=== PATIENT | female | born 1995 | race Caucasian/White ===

== ENCOUNTER 2020-01-30 10:57 | Inpatient (IN) | payer OTHER ==
[2020-01-30] MEDS ORDERED: Penicillin G Potassium 5 MILL.UNITS VIAL ONE (11:27)
[2020-01-30 12:04] VITALS: BMI 23.8
[2020-01-30] MEDS ORDERED: Lidocaine 1% (PF) 30 ML VIAL ONE (12:59)
[2020-01-30] MEDS ORDERED: NS / Oxytocin 40 units/1000ml 1,000 ML ONE (12:59)
[2020-01-30] MEDS ORDERED: Ondansetron PF 4 MG/2 ML Vial IVP PRN (13:07)
[2020-01-30] MEDS ORDERED: Methylergonovine 0.2 MG/ML VIAL IM PRN ×2 (13:07→17:16)
[2020-01-30] MEDS ORDERED: NS / Oxytocin 40 units/1000ml 1,000 ML IV PRN (13:07)
[2020-01-30] MEDS ORDERED: Promethazine HCl 25 MG/ML VIAL IM PRN (13:07)
[2020-01-30] MEDS ORDERED: HYDROcodone/Acetaminophen 5/325 mg Tablet PO PRN ×4 (13:07→17:16)
[2020-01-30] MEDS ORDERED: Lactated Ringer's 1,000 ML IV PRN (13:07)
[2020-01-30] MEDS ORDERED: hydrALAZINE 20 MG/ML VIAL SLOW IVP PRN ×2 (13:07→17:16)
[2020-01-30] MEDS ORDERED: Ibuprofen 800 MG TAB PO PRN (13:07)
[2020-01-30] MEDS ORDERED: Lidocaine 1% (PF) 30 ML VIAL SC PRN (13:07)
[2020-01-30] MEDS ORDERED: Misoprostol 200 MCG TAB PR PRN (13:07)
--- NOTE | 2020-01-30 13:11 | PDOC.LDHP ---
Labor and Delivery H&P Chief complaint: contractions HPI: patient notified me at 0945 that she was having bloody show and some mild contractions. She was going to labor at home with her drier helper until they became intense and then come to hospital. She denies LOF. Current gestational age (weeks): 40 Due date: 01/27/20 Dating criteria: first trimester ultrasound (dating off 1st trimester US at 6w3day.) Grav: 3 Para: 2 OB History Details: 2016. 10lb 2018 8.14 oz 2019 current gestation Current complications: none Abnormal US findings: No Current medications: pre- vitamins Previous surgical history: other (wisdom teeth) Allergies/Adverse Reactions: Allergies Allergy/AdvReac Type Severity Reaction Status Date / Time latex Allergy Verified 05/19/18 09:29 Social history: none - Physical Exam Vital signs reviewed and normal: yes General: breathing through contractions Lungs: nonlabored breathing Abdomen: gravid FHT: category 1 (baseline 125. +Accels. neg decels.) - Vaginal Exam cm dilated: 8 Effacement: 100% Station: 0 - OB Labs Blood type: A RH: positive Antibody Screen: negative HIV: negative RPR: negative HEPSAg: negative 1 hour GCT: negative GBS: positive Urine drug screen: negative Rubella: non-immune - Assessment L&D Assessment: term patient in labor - Plan Plan: admit to L&D, GBS antibiotic prophylaxis
[2020-01-30] MEDS ORDERED: Penicillin G Potassium 5 MILL.UNITS in Sodium Chloride 0.9% 100 ML IVPB SCH (13:15)
[2020-01-30 13:55] LABS: Hemoglobin 11.6 g/dL (12.0-16.0); Mean Corpuscular HGB CONC 32.6 g/dL (32.0-36.0); Mean Corpuscular Hemoglobin 27.8 pg (27.0-31.0); Mean Corpuscular Volume 85.3 fL (78.0-98.0); Mean Platelet Volume 7.8 fL (7.4-10.4); Platelet Count 207 thou/uL (130-400); RBC Distribution Width 13.2 % (11.5-14.5); Red Blood Cell (RBC) Count 4.16 mill/uL (4.20-5.40); White Blood Cell (WBC) Count 12.5 thou/uL (4.8-10.8)
[2020-01-30] MEDS ORDERED: Misoprostol 200 MCG TAB ONE (15:15)
[2020-01-30] MEDS ORDERED: Methylergonovine 0.2 MG/ML VIAL ONE (15:16)
--- NOTE | 2020-01-30 15:40 | PDOC.OPDEL ---
OB Operative/Delivery Note Delivery Dr/Surgeon: Daija Holguin Pre-Delivery Diagnosis: active labor Procedure/Post Delivery Dx: spontaneous vaginal delivery Weeks gestation: 40 Anesthesia: none - Findings A Sex: female Weight: 10 lb 12 oz - 1 min: 8 - 5 min: 9 - Additional Findings/Plan Placenta delivered: spontaneous Repaired Obstetrical Laceration: none Compilations/Other Findings: Membrane retained. Bleeding after delivery. methergine, cytotec and pitocin given Post delivery plan: routine recovery
[2020-01-30] MEDS ORDERED: Penicillin G 2.5 MILL.units 2.5 MILL.UNITS in Premix Bag 1 BAG IVPB SCH (17:00)
[2020-01-30] MEDS ORDERED: Adacel (T-DAP) 0.5 ML SYRINGE IM ONE (17:16)
[2020-01-30] MEDS ORDERED: NS / Oxytocin 40 units/1000ml 1,000 ML IV SCH (17:16)
[2020-01-30] MEDS ORDERED: Lanolin Ointment 7 GM TUBE TOP PRN (17:16)
[2020-01-30] MEDS ORDERED: Measles/Mumps/Rubella 10 MCG/0.5 ML VIAL SC ONE (17:16)
[2020-01-30] MEDS ORDERED: Bisacodyl 10 MG SUPP PR PRN (17:16)
[2020-01-30] MEDS ORDERED: Milk Of Magnesia 30 ML UDCUP PO PRN (17:16)
[2020-01-30] MEDS ORDERED: Misoprostol 200 MCG TAB VAG PRN (17:16)
[2020-01-30] MEDS ORDERED: Benzocaine-Menthol 82.5 ML CAN TOP PRN (17:16)
[2020-01-30] MEDS: Ibuprofen 800 MG TAB PO SCH ×2 (18:33→21:42)
[2020-01-30] MEDS: Ferrous Sulfate 325 MG TAB PO SCH (18:33)
[2020-01-30] MEDS: Docusate Calcium (SURFAK) 240 MG CAP PO SCH (21:42)
[2020-01-31] MEDS: Ibuprofen 800 MG TAB PO SCH ×3 (05:43→21:56)
--- NOTE | 2020-01-31 07:43 | PDOC.PP ---
Post Progress Note Post Day #: 1 Subjective: Doing well. Patient is up the bathroom. PO intake tolerated: yes Flatus: yes Ambulation: yes Vital Signs (12 hours) Temp Pulse Resp BP Pulse Ox 01/31/20 04:06 98.0 F 84 14 116/64 97 01/30/20 23:48 98.5 F 76 12 107/56 L 97 01/30/20 20:41 99.7 F H 94 12 111/61 97 Weight Weight 166 lb - Physical Examination General: NAD Respiratory: non-labored breathing Abdominal: appropriately TTP Skin: no rash Neurological: no gross focal deficits Psychiatric: A&Ox3, normal affect Result Diagrams: 01/30/20 11:54 Additional Labs: Post Labs Blood Type A POSITIVE 01/30/20 11:54 (1) External hemorrhoid Code(s): K64.4 - RESIDUAL HEMORRHOIDAL SKIN TAGS Status: Acute (2) (spontaneous vaginal delivery) Code(s): O80 - ENCOUNTER FOR FULL-TERM UNCOMPLICATED DELIVERY Status: Acute - Assessment/Plan A: G3 now P3 s/p with WNML PPD#1 exam P: Discharge home today if is discharge.
[2020-01-31] MEDS: Docusate Calcium (SURFAK) 240 MG CAP PO SCH ×2 (08:10→20:27)
[2020-01-31] MEDS: Prenatal Vitamin 1 TAB PO SCH (08:10)
[2020-01-31] MEDS: Ferrous Sulfate 325 MG TAB PO SCH ×2 (08:13→15:35)
[2020-01-31 16:29] LABS: HBSAg Index 0.26 S/CO (0-0.99); Hep B Surf Ag Non-Reactive S/CO (NonReactive)
[2020-02-01] MEDS: Ibuprofen 800 MG TAB PO SCH ×2 (06:30→07:22)
[2020-02-01] MEDS: Ferrous Sulfate 325 MG TAB PO SCH (07:25)
[2020-02-01 07:54] VITALS: BP 117/70; TEMP 98.9
[2020-02-01] MEDS: Prenatal Vitamin 1 TAB PO SCH (08:42)
[2020-02-01] MEDS: Docusate Calcium (SURFAK) 240 MG CAP PO SCH (08:42)
== END 2020-02-01 10:05 | disposition home or self-care (01) | DRG 807 ==
LOC: L&D-LIB 10:57 → 3SW 18:19
PROVIDERS: ADMIT Obstetrics & Gynecology; ATTEND Obstetrics & Gynecology
PROC: 10E0XZZ Delivery of Products of Conception, External Approach (ICD-10-PCS; principal; 2020-01-30)
DX: O99.824 Streptococcus B carrier state complicating childbirth (principal); Z37.0 Single live birth; Z3A.40 40 weeks gestation of pregnancy; Z91.040 Latex allergy status; O87.2 Hemorrhoids in the puerperium; O72.2 Delayed and secondary postpartum hemorrhage
CPT/HCPCS: 36415; 85027; 86850; 86900; 86901; 87340; J2001; J2210; J2540